=== PATIENT | female | born 2000 | race Caucasian/White ===

== ENCOUNTER → 2019-12-27 10:46 | Outpatient (BNVA) | payer BC, SELFPAY | PROVIDERS: Family Provider Family Medicine; PCP Family Medicine; Visit Provider Family Medicine | DX: N92.6 Irregular menstruation, unspecified (principal); G43.109 Migraine with aura, not intractable, without status migrainosus; G47.00 Insomnia, unspecified | CPT/HCPCS: 81025 ==

== ENCOUNTER 2023-10-21 07:20 | Emergency (ER) | payer OTHER, SELFPAY ==
[2023-10-21 07:30] VITALS: BP 128/79; PULSE 105; RESP 20; TEMP 37.2; O2SAT 96
--- NOTE | 2023-10-21 07:31 | ED_ITS ---
HPI - General Adult General: Chief complaint: General Medical Stated complaint: sore throat, ear pain Time Seen by Provider: 10/21/23 07:23 History of Present Illness: 23-year-old [facility] with sore [facility] and difficulty swallowing. She said this started about 3 days ago. Has become much worse. He said initially she thought it might be due to her snoring but became worse. No known fevers. No altered mental status. No nausea or vomiting. No abdominal pain. Review of Systems Narrative: Constitutional symptoms: Negative except as documented in HPI. Skin symptoms: Negative except as documented in HPI. Eye symptoms: Negative except as documented in HPI. ENMT symptoms: Negative except as documented in HPI. Respiratory symptoms: Negative except as documented in HPI. Cardiovascular symptoms: Negative except as documented in HPI. Gastrointestinal symptoms: Negative except as documented in HPI. Genitourinary symptoms: Negative except as documented in HPI. Musculoskeletal symptoms: Negative except as documented in HPI. Neurologic symptoms: Negative except as documented in HPI. Psychiatric symptoms: Negative except as documented in HPI. Endocrine symptoms: Negative except as documented in HPI. PFS ED PFSH: Medical History (Updated 10/21/23 @ 08:36 by Katiana Sprague MD) Migraine with aura Surgical History No pertinent past surgical history Family History Other Cancer Diabetes Social History Smoking and tobacco/nicotine status: never used tobacco/nicotine Alcohol intake: never Substance/Drug Use: never Physical Exam Narrative: EXAM NARRATIVE: General: Alert, no acute distress. Skin: warm and dry Head: Normocephalic Neck: Trachea midline Eye: Extraocular movements are intact. Ears, nose, mouth and throat: Oral mucosa moist, patient has extremely swollen tonsils with erythema and exudate. Just above her tonsils she has some swelling on the right superior oropharynx that is worse than the left. No uvular deviation. Respiratory: Respirations are non-labored Musculoskeletal: Normal ROM Neurological: Alert and oriented to person, place, time, and situation, No focal neurological deficit observed. Psychiatric: Cooperative, appropriate mood & affect. Course Vital Signs: Vital signs: Vital Signs Temperature 98.9 F 10/21/23 07:30 Pulse Rate 105 H 10/21/23 07:30 Respiratory Rate 20 H 10/21/23 07:30 Blood Pressure 128/79 10/21/23 07:30 Pulse Oximetry 96 10/21/23 07:30 Oxygen Delivery Me thod Room Air 10/21/23 07:30 MDM - General Adult Medical Decision Making Medical decision making: Differential diagnosis including but not limited to and based on the above HPI, review of systems and physical exam: Patient has a fairly severe tonsillitis/pharyngitis. Am concerned she might be developing a peritonsillar abscess. She does not currently have any uvular deviation. Consultation: I spoke with Dr. Power with ENT. He agrees with antibiotics and steroids and will see the patient in clinic tomorrow. Reexamination: Patient has no increased work of breathing. No altered mental status. No radiology studies performed this visit Other Data Assessment and plan: -IM Rocephin and Decadron in the emergency room. Home on steroids and antibiotics. Follow-up with ENT tomorrow. - Discharged home - Discussed plan with patient. Answered any questions. - Evaluation and treatment of this problem were appropriate in the emergency setting. Discharge Plan Discharge Patient Disposition: Home Clinical Impression: Pharyngitis Condition: Stable Prescriptions: New prednisone 20 mg tablet 60 mg PO DAILY 5 Days Qty: 15 0RF cefdinir 300 mg capsule 300 mg PO BID 10 Days Qty: 20 0RF No Action acetaminophen 325 mg Tablet 650 mg PO QID PRN (Reason: Pain) ibuprofen 200 mg Tablet 200 mg PO Q6H PRN (Reason: Pain) Discharge Orders: Discharge ED (Routine); Ordered 10/21/23 Ordered By: Katiana Sprague Referrals: Gordon Power MD [Physician] - (Call for an appointment today. Dr. Power will see you tomorrow) Discharge Diet: Advance as tolerated Discharge Activity: Increase activity as tolerated Patient Instructions: Opioid Safety, Pain Management Activity Restrictions/Additional Instructions: You have been screened and evaluated and felt safe for discharge. Health conditions do change or evolve sometimes and as such it is important that you follow up with your Primary Doctor to be re checked, 3-5 days is a general good time frame for follow up. You are always welcome to return to the ED for re assessment if your symptoms are worsening or you have new concerns Coding Level of Care Code ED Monitoring And Evaluation Advisor for [facility]
[2023-10-21] MEDS: cefTRIAXone 1,000 MG in water for injection-sterile 2.1 ML 1 MG IM (07:42)
[2023-10-21] MEDS: dexamethasone 10 mg/mL INJ IM (07:42)
== END 2023-10-21 08:54 | disposition home or self-care (01) ==
PROVIDERS: Emergency Provider Emergency Medicine
DX: J02.9 Acute pharyngitis, unspecified (principal)
CPT/HCPCS: 96372; 99284; J0696; J1100

== ENCOUNTER 2023-10-29 14:28 | Emergency (ER) | payer OTHER, SELFPAY ==
[2023-10-29 14:31] VITALS: BP 112/73; PULSE 90; RESP 16; TEMP 36.7; O2SAT 99; BMI 31.7
--- NOTE | 2023-10-29 14:44 | ED_ITS ---
HPI - URI/Sore Throat General: Chief Complaint: Upper Respiratory Infection Stated Complaint: swollen throat, possible allergic reaction Time Seen by Provider: 10/29/23 14:44 History of Present Illness: 23-year-old female comes in today with i ncreased throat pain since stopping ster oid 2 days ago for a tonsillar cellulitis. Patient had talked to the ENT office which she had consulted with regarding a tonsillar abscess 1 week ago. Patient appears nontoxic. Patient is managing secretions well. Respirations are even. Patient appears in mild pain. Patient does continue on the cefdinir and has 2 more days of it. Review of Systems General: Reports: 10 or more systems reviewed and unremarkable except in HPI and below ENMT: Reports: throat pain [facility] ED PFSH: Medical History (Updated 10/29/23 @ 14:51 by CHARLENE Haile) Migraine with aura Surgical History No pertinent past surgical history Family History Other Cancer Diabetes Social History Smoking and tobacco/nicotine status: never used tobacco/nicotine Alcohol intake: never Substance/Drug Use: never Physical Exam Const: COMMON NORMALS: alert HENMT: COMMON NORMALS: normocephalic HEAD & SCALP: normocephalic THROAT: abnormal tonsil bilateral (Cryptic) hypertrophy and posterior oropharynx abnormal erythema Neck/C-Spine: COMMON NORMALS: full ROM Resp: COMMON NORMALS: normal respiratory effort and clear to auscultation bilaterally AUSCULTATION: clear to auscultation bilaterally GI: COMMON NORMALS: Soft to palpation PALPATION: Yes Soft to palpation Back/Pelvis: COMMON NORMALS: thoracic and lumbar spine normal to inspection Extremity: COMMON NORMALS: normal to inspection Neuro: SENSORIUM/ORIENTATION: Yes alert Skin: COMMON NORMALS: turgor normal GENERAL SKIN EXAM: turgor normal Course Vital Signs: Vital signs: Vital Signs Temperature 98.1 F 10/29/23 14:31 Pulse Rate 90 10/29/23 14:31 Respiratory Rate 16 10/29/23 14:31 Blood Pressure 112/73 10/29/23 14:31 Pulse Oximetry 99 10/29/23 14:31 Oxygen Delivery Me thod Room Air 10/29/23 14:31 MDM - URI/Sore Throat Medical Decision Making 23-year-old female comes in today with recurring pharyngeal soreness after stopping steroids 2 days ago. Patient appears nontoxic. Patient is managing secretions well. Examination of posterior pharynx notes some erythema with bila teral tonsillar hypertrophy. Patient also have crypts and bilateral tonsils. Right tonsil seems to extend midline more so than the left but it is soft and nontender to palpation. No obvious abscesses noted. Differential diagnosis includes tonsillar abscess, peritonsillar cellulitis, rebound symptoms after steroid use. Recommend restarting prednisone at 40 mg daily for the next 7 days. Will also continue cefdinir for 7 more days with the steroid. Patient was recommended to contact Dr. Power's office back and follow back up with him in a week. Return to ER for worsening symptoms. Patient reported understanding and agreed to plan. Patient was stable and discharged home. No radiology studies performed this visit Discharge Plan Discharge Patient Disposition: Home Clinical Impression: Peritonsillar cellulitis Condition: Stable Prescriptions: New prednisone 20 mg tablet 40 mg PO DAILY 7 Days Qty: 14 0RF Continued cefdinir 300 mg capsule 300 mg PO BID 10 Days Qty: 10 0RF No Action acetaminophen 325 mg Tablet 650 mg PO QID PRN (Reason: Pain) ibuprofen 200 mg Tablet 200 mg PO Q6H PRN (Reason: Pain) Discharge Orders: Discharge ED (Routine); Ordered 10/29/23 Ordered By: Deepak Rodríguez Discharge Diet: Usual diet Discharge Activity: Increase activity as tolerated Patient Instructions: Tonsillitis (ED) Activity Restrictions/Additional Instructions: Follow-up with ENT in 1 week. Return to ER for worsening symptoms. 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
[2023-10-29 15:02] VITALS: BP 115/75; PULSE 86; RESP 16; TEMP 36.7; O2SAT 99
[2023-10-29] MEDS: dexamethasone 10 mg/mL INJ IM (15:02)
== END 2023-10-29 15:03 | disposition home or self-care (01) ==
PROVIDERS: Emergency Provider Nurse Practitioner Family
DX: J36 Peritonsillar abscess (principal)
CPT/HCPCS: 96372; 99284; J1100

== ENCOUNTER 2023-12-01 05:54 | Day surgery (SDC) | payer OTHER, SELFPAY ==
[2023-12-01] VITALS (9 sets, daily range): BP systolic 98–123; BP diastolic 67–84; PULSE 82–105; RESP 10–18; TEMP 36.1–37.2; O2SAT 93–100; BMI 32.1
[2023-12-01] MEDS: sodium chloride 0.9% 1,000 ML 30 ML IV (06:44)
--- NOTE | 2023-12-01 06:51 | ANES.PREANE2 ---
Pre-Anesthetic Assessment Height/Weight: Height 1.63 m Weight 84.822 kg Temp Pulse Resp BP Pulse Ox O2 Del Method 98.9 F 86 18 103/67 98 Room Air 12/01/23 06:17 12/01/23 06:17 12/01/23 06:17 12/01/23 06:17 12/01/23 06:17 12/01/23 06:19 Preop Diagnosis: Peritonsillar abscess/cellulitis with tonsillar hypertrophy Operation Date: 12/01/23 07:45 Proposed Procedures p Tonsillectomy 70410(Not Applicable) - Gordon Power MD Familial anesthetic complications: none Was Beta Placido taken within 24 hours: N/A Was Clonidine taken within 24 hours: N/A Last intake: Intake Last Liquid Date 11/30/23 Last Liquid Time 22:30 Last Solid Date 11/30/23 Last Solid Time 22:30 Social No alcohol and No tobacco Exam alert, oriented x 3, clear to auscultation bilaterally and regular rate & rhythm Airway Submandibular: within normal limits Cervical ROM: within normal limits Mallampati: Class II Dentition: chipped Comments: Comments: Multiple caries Neuropsych Headache Anesthetic Plan ASA status: 2 Anesthesia: General Medications/Allergies Home Medications Medication Instructions Recorded Confirmed Last Taken Type acetaminophen 325 mg tablet 650 mg PO QID PRN Pain 10/21/23 11/28/23 11/27/23 History ibuprofen 200 mg tablet 200 mg PO Q6H PRN Pain 10/21/23 12/01/23 11/09/23 History Allergies Allergy/AdvReac Type Severity Reaction Status Date / Time No Known Allergies Allergy Verified 12/01/23 06:05 Current Medications Generic Name Dose Route Start Last Admin Trade Name Freq PRN Reason Stop Dose Admin Sodium Chloride 1,000 mls @ 30 mls/hr 12/01/23 06:00 12/01/23 06:44 Sodium Chloride 0.9% IV 12/02/23 05:59 30 mls/hr .Q24H MARTINA Administration PFSH Anesthesia Medical History Migraine with aura Surgical History No pertinent past surgical history Family History Father Hx of tonsillectomy Mother Hx of tonsillectomy Other Cancer Diabetes Social History Smoking and tobacco/nicotine status: never used tobacco/nicotine Alcohol intake: never Substance/Drug Use: never Data Anesthesia Cardiac Studies: No Data to Display
--- NOTE | 2023-12-01 06:52 | W.PM.OPSUD ---
Surgery/Procedure H&P Update DATE OF PROCEDURE: December 01, 2023 DATE H&P PERFORMED: 11/13/23 H&P UPDATE INFORMATION: I have reviewed H&P completed within last 30 days, I have examined patient prior to procedure and No changes to prior documentation CHANGES TO PREVIOUS DOCUMENTATION: No changes PREOP DIAGNOSIS: Peritonsillar abscess/cellulitis with tonsillar hypertrophy PRIMARY INDICATION FOR PROCEDURE: History of peritonsillar abscess/cellulitis and persistent tonsillar hypertrophy PLANNED PROCEDURE: Operation Date: 12/01/23 07:45 Proposed Procedures p Tonsillectomy 42078(Not Applicable) - Gordon Power MD
[2023-12-01] MEDS: ceFAZolin 2,000 MG in sodium chloride 0.9% (plus) 50 ML 100 MG IV (07:46)
[2023-12-01] MEDS: oxymetazoline 0.05% Nasal Spray 15 mL 2 SPRAY XX (08:05)
[2023-12-01] MEDS: ceFAZolin 1,000 MG in sodium chloride 0.9% (plus) 50 ML 100 MG IV (08:11)
--- NOTE | 2023-12-01 08:22 | PM.OP ---
Operative Report Date of procedure: December 01, 2023 Pre-op diagnosis: Recurrent peritonsillar abscess/cellulitis with tonsillar hypertrophy. Post-op diagnosis: Same plus recurrent acute suppurative tonsillitis Post-op findings: 4+ cryptic irregular erythematous purulent covered tonsils with extreme scarring. Procedure done: Tonsillectomy Implants: No implants Specimens removed/disposition: Tonsils Pathology: Tonsils for permanent pathology Surgeon: Gordon Power MD Anesthesia: General Estimated blood loss: 10 mL Complications: No complications encountered Findings: Patient with recurrent peritonsillar abscess/cellulitis with persistent tonsillar hypertrophy and developing new acute suppurative tonsillitis Brief History: 23-year-old female patient was had recurrent peritonsillar abscess/cellulitis with persistent 4+ tonsillar hypertrophy. Being brought to the operating room at this time to undergo tonsillectomy. The procedure its risks and complications have been explained in detail to the patient. These risks included bleeding and delayed bleeding and infection and sore throat and voice change and nasal regurgitation and regrowth and need for additional treatment as well as bad breath and referred pain to the ears and neck and more serious risks such as heart attack or stroke or not surviving the surgery. With these things understood informed consent was granted and witnessed. Procedure: Description of procedure: The patient was placed on the operating table in the supine position. Adequate general endotracheal tube anesthesia was obtained. She was given Ancef IV for prophylaxis and Decadron to help with postoperative edema. The table was rotated 90 degrees. The eyes were taped shut. Head drape was applied in usual fashion. A timeout was accomplished identifying the patient and date of and planned procedure and allergies and fire risk and medications given. With all in agreement the procedure continued. A Aminata Denis mouthgag was inserted over the endotracheal tube and tongue ensuring that the upper incisors were in the guard. This was then opened and suspended from a rolled towel placed on her chest. A red rubber catheter was inserted and grasped to elevate the palate. However there was no movement with the red rubber catheter and therefore this was removed and not used again. A tenaculum was used to clamp the left tonsil and retracted towards the midline. The Coblator on ablation and coagulation modes was then used to dissected tonsil from its bed from a superior to inferior direction. Hemostasis was attained as the dissection proceeded. A significant amount of scarring was noted in the layer between the muscle and the tonsillar capsule. All tonsillar tissue was ablated. Once the left tonsil was removed a similar procedure was performed to remove the right tonsil. The right side was covered with purulent material. The Ancef was increased to 3 g at my directive. Steroid was increased as well. The Coblator on ablation and coagulation modes was used to dissected the right tonsil from its bed from a superior to inferior direction. Hemostasis was obtained at the same time. A greater amount of scarring was noted between the tonsillar capsule and the underlying musculature from her previous peritonsillar abscess/cellulitis problems. Again after the right tonsil was removed hemostasis was attained with the coagulation mode of the Coblator. Saline was used to irrigate and manipulation with the Yankauer suction was accomplished to look for any bleeding. None was noted. I then released the Aminata Denis mouthgag and the tongue and neck were massaged. The mouthgag was reopened. No bleeding was seen. The patient did have a little ooze from around her cavities and gingivitis on the right side more than the left. The area was suctioned 1 more time. The mouthgag was released and removed. The patient's head was returned to the upright position. Head drape and tape were removed. Patient was then returned to the anesthesiologist for wake-up and extubation. She tolerated the procedure well and had an estimated blood loss of 10 mL. She arrived in recovery in stable condition.
[2023-12-01 09:01] LABS: OR HCG Qualitative Urine Negative (Negative)
--- NOTE | 2023-12-01 13:35 | ANE.PACU2 ---
Inpatient post-anesthesia follow up: Vital signs: Temperature 98.8 F Pulse Rate 82 Respiratory Rate 16 Blood Pressure 110/74 Pulse Oximetry 96 Oxygen Delivery Me thod Room Air Oxygen Flow Rate 6 Fraction of Inspir ed Oxygen Hydration adequate: Yes Nausea and vomiting: No Pain level: 1 Mental status: Baseline Additional Comments: no apparent anesthetic complications noted
== END 2023-12-01 09:57 | disposition home or self-care (01) ==
PROVIDERS: Anesthesiology; Visit Provider Otolaryngology
PROC: (CPT 42826; principal; 2023-12-01 07:35)
DX: J03.91 Acute recurrent tonsillitis, unspecified (principal)
CPT/HCPCS: 42826; 81025; 88304; J0330; J0690; J1100; J1170; J1200; J2250; J2371; J2405; J2704; J3010; J3490; J7030